=== PATIENT | female | born 1950 | race Caucasian/White ===

== ENCOUNTER 2021-10-21 10:02 | Emergency (ER) | payer MEDICARE, SELFPAY ==
[2021-10-21 10:11] VITALS: BP 183/72; PULSE 78; RESP 18; TEMP 36.3; O2SAT 100
--- NOTE | 2021-10-21 10:12 | ED.URI ---
HPI - URI/Sore Throat General Chief Complaint: Upper Respiratory Infection Stated Complaint: Sinus Time Seen by Provider: 10/21/21 10:20 Source: patient and RN notes reviewed Mode of arrival: ambulatory Limitations: no limitations History of Present Illness HPI Narrative: 71-year-old female with history of coronary artery disease presents with concern for over 1 week history of nasal congestion, sinus pressure, purulent sinus drainage, headache, body aches, general malaise. Reports she has been taking Mucinex with little relief. She denies cough, shortness of breath, fever. Reports she has been vaccinated for Covid. MD elicited complaint: nasal congestion Related Data Home Medications Medication Instructions Recorded Confirmed aspirin 81 mg chewable tablet 81 mg PO DAILY 02/23/20 09/20/20 Allergies Allergy/AdvReac Type Severity Reaction Status Date / Time Sulfa (Sulfonamide Allergy Unknown Swelling Verified 09/20/20 13:30 Antibiotics) of Lip/Tongue/Throat atorvastatin AdvReac Severe myalgia Verified 09/20/20 13:30 wheat AdvReac shortness Verified 09/20/20 13:30 of breathe Review of Systems Review of Systems: CONSTITUTIONAL: Denies malaise, chills, sweats, or fever. EYES: Denies visual changes, redness, or discharge. ENT: Reports rhinorrhea, congestion, sinus pain, scratchy throat. Denies otalgia and sore throat. CARDIOVASCULAR: Denies chest pain, palpitations, or edema. RESPIRATORY: Denies cough. Denies dyspnea. GASTROINTESTINAL: Denies abdominal pain, nausea, vomiting, diarrhea SKIN: Denies rash or itching. MUSCULOSKELETAL: Reports myalgia. NEUROLOGIC: Reports headache. All systems reviewed & are unremarkable except as noted in HPI and below PMFSH Past Medical History Medical History CAD (coronary artery disease) Chronic rhinitis Metabolic syndrome Other allergy, initial encounter Vitamin D deficiency, unspecified Family History Family History (Updated 07/28/14 @ 07:13 by DOCTOR UNKNOWN) Mother Cerebrovascular accident Social History Social History Smoking status: Never smoker Second hand tobacco smoke exposure: No Alcohol intake: never Comments At time of signature, agree with nursing past medical, surgical, social and family history. There is no relevant family history pertinent to the presenting complaint Exam Narrative: GENERAL: Well-appearing, well-nourished, and in no acute distress. HEAD: Normocephalic EYES: PERRLA, conjunctivae clear ENT: Nares clear, purulent discharge. Mucous membranes moist. TM pearly daniel with dull light reflex bilaterally; no tragal tenderness. Oropharynx erythematous without lesions. Tonsils not enlarged and without exudate, no drooling, no hoarseness, no trismus, uvula midline. NECK: Supple. No lymphadenopathy CHEST: Clear to auscultation, breath sounds equal. No wheezing, rhonchi, rales, or stridor. No respiratory distress, speaks in full sentences. HEART: Regular rate and rhythm. No murmur heard. SKIN: Warm, dry, no rash. NEURO: Alert and oriented x3. PSYCH: Normal mood and affect Course Course Emergency Course: Patient is aware of diagnosis, understands and agrees to treatment plan. Anticipatory guidance given. Patient agrees to follow-up as directed and is aware of reasons to seek care at the emergency department. Portions of this record may have been created with voice recognition software Vital Signs Vital signs: Vital Signs Temperature 97.4 F L 10/21/21 10:11 Pulse Rate 78 10/21/21 10:11 Respiratory Rate 18 10/21/21 10:11 Blood Pressure 183/72 H 10/21/21 10:11 Pulse Oximetry 100 10/21/21 10:11 Temperature 97.4 F L 10/21/21 10:11 Pulse Rate 78 10/21/21 10:11 Respiratory Rate 18 10/21/21 10:11 Blood Pressure 183/72 H 10/21/21 10:11 Pulse Oximetry 100 10/21/21 10:11 Reviewed. Patient has been instructed to follow up with her primary care pro
== END 2021-10-21 10:35 | disposition home or self-care (01) ==
PROVIDERS: Emergency Provider Nurse Practitioner; PCP Family Medicine
DX: J01.90 Acute sinusitis, unspecified (principal); I25.10 Atherosclerotic heart disease of native coronary artery without angina pectoris; E55.9 Vitamin D deficiency, unspecified; E88.81 Metabolic syndrome and other insulin resistance
CPT/HCPCS: 99213; G0463